=== PATIENT | male | born 1985 | race Caucasian/White ===

== ENCOUNTER 2016-09-05 03:57 | Emergency (ER) | payer SELFPAY ==
[~2016-09-05] VITALS: Ht 175.3 cm; Wt 75.0 kg
[~2016-09-05 03:57] MED LIST: OMEP40CA3 PO; ONDA-43 PO
[2016-09-05 04:04] VITALS: Ht 175.3 cm; Wt 75.0 kg
[2016-09-05] MEDS ORDERED: HYDROmorphONE 1 MG/ML SYG IV STA (04:09)
[2016-09-05] MEDS ORDERED: ONDANSETRON 4 MG INJ IV STA (04:09)
[2016-09-05] MEDS ORDERED: SOD CHLORIDE 0.9% 1,000 ML IV ONE (04:30)
--- NOTE | 2016-09-05 04:42 | RADRPT ---
PROCEDURE: CT Abdomen and pelvis without contrast. CLINICAL INDICATION: Abdominal pain. TECHNIQUE: CT scan of the abdomen and pelvis was performed on a multi-detector high-resolution CT scanner. Contiguous axial images were obtained from the lung bases to the ischial tuberosities wit hout intravenous contrast. Coronal and sagittal reformatted images were also obtained. Images were reviewed on the PACS workstation. One or more of the following dose reduction techniques were used: - Automated exposure control. - Adjustment of the mA and/or kV according to patient size. - Use of iterative reconstruction technique. Exam CTD/vol = 5.37 mGy. Total exam DLP = 314.29 mGy-cm. COMPARISON: 04/25/2013. FINDINGS: Evaluation of the lung bases demonstrates no pleural or parenchymal disease. Abdomen: The liver is normal in size. There is no focal mass or dilatation of the biliary tree. T he gallbladder is not distended. The spleen, pancreas and bilateral adrenal glands are within indira l limits. Bilateral kidneys are normal in size with no contour deforming mass identified. There is no radiopaque renal or ureteral calculus identified. There is no hydronephrosis or hydroureter. T here is no retroperitoneal adenopathy. The abdominal aorta is of normal caliber with scattered athe rosclerotic calcifications. There is no abnormal bowel wall thickening or distension. There is no bowel obstruction or free air . A normal appendix is identified. There is no diverticulosis or diverticulitis. There is no asci conner. Pelvis: The bladder is unremarkable. The prostate and seminal vesicles are within normal limits. There is no significant pelvic adenopathy or free fluid. Evaluation of the osseous structures demonstrates no suspicious lytic or blastic lesion. IMPRESSION: No acute abnormality identified within the abdomen and pelvis. Mild vascular calcifications reflective of atherosclerosis. .Scot Garcia MD, MD Date Time Electronically viewed and signed by .Scot Garcia MD, MD on 09/05/2016 04:41 .T/
[2016-09-05 04:43] LABS: ADD SCAN DIFF NO
[2016-09-05 04:45] LABS: BASOPHILS % 0.2 % (0.0-2.0); HEMATOCRIT 52.6 % (42.0-52.0); HEMOGLOBIN 18.1 g/dl (14.0-18.0); LYMPHOCYTES # 1.1 10^3/ul (0.8-2.9); LYMPHOCYTES % 5.9 % (15.0-51.0); MEAN CORPUSCULAR HEMOGLOBIN 31.7 pg (29.0-33.0); MEAN CORPUSCULAR HGB CONC 34.4 g/dl (32.0-37.0); MEAN CORPUSCULAR VOLUME 92.1 fl (82.0-101.0); MONOCYTE # 0.9 10^3/ul (0.3-0.9); MONOCYTES % 4.9 % (0.0-11.0); NEUTROPHILS % 88.2 % (39.0-77.0); PLATELET COUNT 496 10^3/UL (140-415); RED BLOOD COUNT 5.71 10^6/ul (4.70-6.10); RED CELL DISTRIBUTION WIDTH 11.8 % (11.5-14.5); WHITE BLOOD COUNT 18.1 10^3/ul (4.8-10.8)
[2016-09-05 05:00] LABS: ALBUMIN 5.6 g/dl (3.3-4.9); BILIRUBIN,INDIRECT 0.2 mg/dl (0-1.1); BILIRUBIN,TOTAL 0.2 mg/dl (0.2-1.3); CALCIUM 11.2 mg/dl (8.4-10.2); CREATININE 3.49 mg/dl (0.61-1.24); POTASSIUM 3.9 mmol/L (3.5-5.1)
[2016-09-05 05:07] LABS: ALBUMIN/GLOBULIN RATIO 1.07
[2016-09-05 05:16] LABS: TOTAL PROTEIN 10.8 g/dl (6.1-8.1)
--- NOTE | 2016-09-05 05:36 | ERA ---
ER Documentation Chief Complaint Date/Time DATE: 09/05/16 TIME: 05:34 Chief Complaint abdominal pain and vomitting x 2 daYS HPI This is a 30-year-old male with abdominal pain and vomiting for 2 days. Vomiting is nonbilious nonbloody. Abdominal pain is localized to the epigastric region no fevers no chills. Pain is mild to moderate intensity. No other current complaints. ROS All systems reviewed and are negative except as per history of present illness. Medications Home Meds Reported Medications Omeprazole* (Prilosec*) 40 Mg Capsule.dr, 40 MG PO DAILY 04/25/13 Ondansetron Hcl* (Zofran*) 4 Mg Tab, 4 MG PO Q4 Y 04/25/13 Allergies Allergies: Uncoded Allergies: IBUPROPHEN (Allergy, 04/25/13) PMhx/Soc Medical and Surgical Hx: pt denies Surgical Hx Hx Miscellaneous Medical Probl: Yes (gastric ulcer) Hx Alcohol Use: Yes Hx Substance Use: Yes (MARIJUANA) Hx Tobacco Use: Yes (DAILY) Smoking Status: Current every day smoker Physical Exam Vitals Vital Signs Date Time Temp Pulse Resp B/P Pulse Ox O2 Delivery O2 Flow Rate FiO2 09/05/16 04:04 97.8 139 18 131/97 97 Physical Exam Const: [] Head: Atraumatic Eyes: Normal Conjunctiva ENT: Normal External Ears, Nose and Mouth. Neck: Full range of motion..~ No meningismus. Resp: Clear to auscultation bilaterally Cardio: Regular rate and rhythm, no murmurs Abd: Soft, non tender, non distended. Normal bowel sounds Skin: No petechiae or rashes Back: No midline or flank tenderness Ext: No cyanosis, or edema Neur: Awake and alert Psych: Normal Mood and Affect Result Diagram: 09/05/16 0405 09/05/16 0405 Results 24 hrs Laboratory Tests Test 09/05/16 04:05 White Blood Count 18.110^3/ul Red Blood Count 5.7110^6/ul Hemoglobin 18.1g/dl Hematocrit 52.6% Mean Corpuscular Volume 92.1fl Mean Corpuscular Hemoglobin 31.7pg Mean Corpuscular Hemoglobin Concent 34.4g/dl Red Cell Distribution Width 11.8% Platelet Count 80498^3/UL Mean Platelet Volume 10.0fl Neutrophils % 88.2% Lymphocytes % 5.9% Monocytes % 4.9% Eosinophils % 0.0% Basophils % 0.2% Nucleated Red Blood Cells % 0.0/100WBC Neutrophils # 16.010^3/ul Lymphocytes # 1.110^3/ul Monocytes # 0.910^3/ul Eosinophils # 0.010^3/ul Basophils # 0.010^3/ul Nucleated Red Blood Cells # 0.010^3/ul Sodium Level 140mmol/L Potassium Level 3.9mmol/L Chloride Level 93mmol/L Carbon Dioxide Level 22mmol/L Anion Gap 29 Blood Urea Nitrogen 25mg/dl Creatinine 3.49mg/dl Glucose Level 360mg/dl Calcium Level 11.2mg/dl Total Bilirubin 0.2mg/dl Direct Bilirubin 0.00mg/dl Indirect Bilirubin 0.2mg/dl Aspartate Amino Transf (AST/SGOT) 32IU/L Alanine Aminotransferase (ALT/SGPT) 30IU/L Alkaline Phosphatase 131IU/L Total Protein 10.8g/dl Albumin 5.6g/dl Globulin 5.20g/dl Albumin/Globulin Ratio 1.07 Lipase 113U/L Current Medications Medications (Trade) Dose Ordered Sig/Jessica Route PRN Reason Start Time Stop Time Status Last Admin Dose Admin Hydromorphone HCl (Dilaudid) 1 mg ONCE STAT IV 09/05/16 04:09 09/05/16 04:14 DC 09/05/16 04:18 Ondansetron HCl 4 mg 4 mg ONCE STAT IV 09/05/16 04:09 09/05/16 04:14 DC 09/05/16 04:18 Sodium Chloride (NS) 1,000 ml @ 1,000 mls/hr Q1H ONCE IV 09/05/16 04:30 09/05/16 05:29 DC 09/05/16 05:03 Procedures/MDM EKG: Rate/Rhythm: Sinus tachycardia 134 QRS, ST, T-waves: [No changes consistent w/ acute ischemia] Impression: [Sinus tach Medical assessment: 30-year-old male with abdominal pain likely epigastric in origin with gastritic symptoms. Patient is a history of ulcer in the past. No evidence of surgical abdomen. CT is negative otherwise. Patient will be discharged home with omeprazole, Lesage, Zofran, Carafate. Follow-up in 8 hours for serial abdominal exams. Departure Diagnosis: Primary Impression: Abdominal pain Qualified Code: R10.13 - Epigastric pain Condition: Stable JAYDON TRAN Sep 05, 2016 05:36
[2016-09-05] MEDS ORDERED: ONDA4TAB14 PO (05:37)
[2016-09-05] MEDS ORDERED: RANI150T9 PO (05:37)
[2016-09-05] MEDS ORDERED: SUCR1TAB56 PO (05:37)
[2016-09-05] MEDS ORDERED: HYDR-902 PO (05:37)
[2016-09-05 06:14] VITALS: BP 130/80; PULSE 66; RESP 16; TEMP 97.8
== END 2016-09-05 06:14 | disposition home or self-care (01) ==
LOC: E/R 03:57
DX: R10.13 Epigastric pain (principal); R11.10 Vomiting, unspecified; F17.210 Nicotine dependence, cigarettes, uncomplicated
CPT/HCPCS: 36415; 74176; 80053; 83690; 85025; 96374; 96375; 99285; J1170; J2405; J7030

== ENCOUNTER 2016-09-10 15:42 | Inpatient (IN) | payer MEDICAID, OTHER ==
[~2016-09-10] VITALS: Ht 175.3 cm; Wt 78.5 kg
[~2016-09-10 15:42] MED LIST changes: +HYDR-902 PO; +ONDA4TAB14 PO; +RANI150T9 PO; +SUCR1TAB56 PO
[2016-09-10] MEDS ORDERED: METOCLOPRAMIDE 10 MG INJ IV STA (16:13)
[2016-09-10] MEDS ORDERED: SOD CHLORIDE 0.9% 1,000 ML IV STA (16:13)
[2016-09-10] MEDS ORDERED: FAMOTIDINE 20 MG INJ IV STA (16:13)
[2016-09-10] MEDS ORDERED: morphine 4 MG/ML VIAL IV STA (16:13)
--- NOTE | 2016-09-10 16:23 | ERA ---
ER Documentation Chief Complaint Date/Time DATE: 09/10/16 TIME: 16:18 Chief Complaint AP WITH VOMITING, HERE LAST MONDAY C/O SAME HPI 30-year-old male with no significant past medical history presenting to the ER with abdominal pain for about 9 days. He states he was here on September 05 for the same symptoms and sent home with antireflux medication and sucralfate. His pain has not improved at all. He is unable to take the [place] he was also prescribed as he throws it up. He states his pain is all over his abdomen, stabbing, constant, worse with any oral intake, nothing seems to make it better. His pain is a 10 out of 10. He has associated nonbloody and nonbilious vomiting. He has had constipation for the past 2 days but is passing gas. He denies any associated fevers or chills. He denies any associated chest pain, shortness of breath, headaches, dizziness, neck pain, stiffness. He denies any dysuria or hematuria. He is urination has not decreased. ROS All systems reviewed and are negative except as per history of present illness. Medications Home Meds Active Scripts Ondansetron (Ondansetron Odt) 4 Mg Tab.rapdis, 4 MG PO Q6H Y for NAUSEA AND/OR VOMITING, #10 TAB Prov:JAYDON TRAN 09/05/16 Ranitidine Hcl* (Zantac*) 150 Mg Tablet, 150 MG PO BID Y for EPIGASTRIC PAIN, # 30 TAB Prov:JAYDON TRAN 09/05/16 Sucralfate* (Carafate*) 1 Gm Tab, 1 GM PO QID, #60 TAB Prov:JAYDON TRAN 09/05/16 Discontinued Reported Medications Omeprazole* (Prilosec*) 40 Mg Capsule.dr, 40 MG PO DAILY 04/25/13 Ondansetron Hcl* (Zofran*) 4 Mg Tab, 4 MG PO Q4 Y 04/25/13 Discontinued Scripts Hydrocodone/Acetaminophen ([place] 10-325 Tablet) 1 Each Tablet, 1 TAB PO Q6H Y for PAIN, #20 TAB Prov:JAYDON TRAN 09/05/16 Allergies Allergies: Uncoded Allergies: IBUPROPHEN (Allergy, Unknown, 09/10/16) PMhx/Soc Medical and Surgical Hx: pt denies Surgical Hx Hx Miscellaneous Medical Probl: Yes (gastritis) Hx Alcohol Use: No Hx Substance Use: Yes (MARIJUANA) Hx Tobacco Use: Yes (quit a few days ago) Smoking Status: Former smoker FmHx Family History: No diabetes Physical Exam Vitals Vital Signs Date Time Temp Pulse Resp B/P Pulse Ox O2 Delivery O2 Flow Rate FiO2 09/10/16 15:46 97.9 98 20 113/66 99 Physical Exam Const: Nontoxic, thin male, mild distress secondary to pain Head: Atraumatic Eyes: Normal Conjunctiva, PERRLA, EOMI, no nystagmus ENT: Dry mucous membranes, oropharynx clear Neck: Full range of motion..~ No meningismus. Resp: Clear to auscultation bilaterally Cardio: Regular rate and rhythm, no murmurs Abd: Soft, concave, minimal subjective tenderness diffusely, no guarding or rebound, non distended. Negative Lowe sign. No McBurney's point tenderness. Hyperactive bowel sounds Skin: No petechiae or rashes Back: No midline or flank tenderness Ext: Multiple tattoos noted, no cyanosis, or edema Neur: Awake and alert and oriented 3, no facial asymmetry, moving all extremities Psych: Normal Mood and Affect Result Diagram: 09/10/16 1627 09/10/16 1627 Results 24 hrs Laboratory Tests Test 09/10/16 16:27 09/10/16 16:36 White Blood Count 11.910^3/ul Red Blood Count 4.9310^6/ul Hemoglobin 15.9g/dl Hematocrit 43.2% Mean Corpuscular Volume 87.6fl Mean Corpuscular Hemoglobin 32.3pg Mean Corpuscular Hemoglobin Concent 36.8g/dl Red Cell Distribution Width 10.9% Platelet Count 11024^3/UL Mean Platelet Volume 10.0fl Neutrophils % 63.3% Lymphocytes % 22.1% Monocytes % 12.8% Eosinophils % 1.0% Basophils % 0.4% Nucleated Red Blood Cells % 0.0/100WBC Neutrophils # 7.510^3/ul Lymphocytes # 2.610^3/ul Monocytes # 1.510^3/ul Eosinophils # 0.110^3/ul Basophils # 0.110^3/ul Nucleated Red Blood Cells # 0.010^3/ul Sodium Level 126mmol/L Potassium Level 3.4mmol/L Chloride Level 77mmol/L Carbon Dioxide Level 31mmol/L Anion Gap 21 Blood Urea Nitrogen 38mg/dl Creatinine 1.23mg/dl Glucose Level 120mg/dl Calcium Level 9.5mg/dl Total Bilirubin 0.8mg/dl Direct Bilirubin 0.00mg/dl Indirect Bilirubin 0.8mg/dl Aspartate Amino Transf (AST/SGOT) 32IU/L Alanine Aminotransferase (ALT/SGPT) 33IU/L Alkaline Phosphatase 72IU/L Total Protein 8.8g/dl Albumin 5.2g/dl Globulin 3.60g/dl Albumin/Globulin Ratio 1.44 Lipase 216U/L Bedside Glucose 108mg/dL Current Medications Medications (Trade) Dose Ordered Sig/Jessica Route PRN Reason Start Time Stop Time Status Last Admin Dose Admin Sodium Chloride (NS) 1,000 ml @ 1,000 mls/hr Q1H STAT IV 09/10/16 16:13 09/10/16 21:04 DC 09/10/16 16:31 Morphine Sulfate (morphine) 4 mg ONCE STAT IV 09/10/16 16:13 09/10/16 16:14 DC 09/10/16 16:26 Metoclopramide HCl (Reglan) 10 mg ONCE STAT IV 09/10/16 16:13 09/10/16 16:14 DC 09/10/16 16:26 Famotidine 20 mg 20 mg ONCE STAT IV 09/10/16 16:13 09/10/16 16:14 DC 09/10/16 16:26 Potassium Chloride/Dextrose/ Sod Cl (D5-1/2ns + KCl 40 Meq) 1,000 ml @ 80 mls/hr [id number] IV 09/10/16 17:33 09/11/16 06:02 Procedures/MDM EMERGENT LABS AND DIAGNOSTIC STUDIES: Lab Results above were reviewed and interpreted by me. CBC notable for mild leukocytosis BMP notable for hyponatremia, hypochloremia, BUN elevation, hypokalemia Urinalysis normal 12-lead EKG was interpreted by Reg Nguyen MD: Normal Sinus Rhythm with ventricular rate of 88 beats per minute Right axis deviation No acute ST or T wave changes suggestive of acute ischemia or STEMI. Radiology Results as interpreted by Radiology below were reviewed by Marcia Nguyen MD: Chest x-ray shows no acute abnormalities CT abdomen and pelvis shows no acute abnormalities Initial Nursing notes reviewed. Previous Medical Records requested via the Electronic Health Record. EMERGENCY DEPARTMENT COURSE / MEDICAL DECISION MAKING: Patient is presenting with diffuse abdominal pain with intractable nausea and vomiting for about 9 days. He is afebrile and otherwise hemodynamically stable. I do not suspect meningitis or encephalitis. I have a low suspicion for acute surgical abdomen, however his CT abdomen and pelvis were ordered to rule out any other pathology that may be causing his symptoms. The patient does use marijuana, so this may be related to that. Labs did show evidence of hypo-natremia, hypochloremia. He is clinically hypovolemic. IV fluids were given. Patient will be admitted for further hydration and control of his symptoms. Maintenance IV fluids were also started. He was given medications for his nausea, with significant improvement. I spoke with Dr. Kapoor, who will admit the patient to Med/Surg. Departure Diagnosis: Primary Impression: Hyponatremia Additional Impressions: Abdominal pain Qualified Code: R10.84 - Generalized abdominal pain Dehydration Intractable nausea and vomiting Qualified Code: G43.A1 - Intractable cyclical vomiting with nausea Acute kidney injury Condition: BEN Lazaro MD Sep 10, 2016 16:23
[2016-09-10 16:38] LABS: ADD SCAN DIFF NO
[2016-09-10 16:40] LABS: ABNORMAL IP MESSAGE 1; BASOPHIL # 0.1 10^3/ul (0.0-0.1); BASOPHILS % 0.4 % (0.0-2.0); EOSINOPHILS # 0.1 10^3/ul (0.0-0.5); HEMATOCRIT 43.2 % (42.0-52.0); HEMOGLOBIN 15.9 g/dl (14.0-18.0); LYMPHOCYTES # 2.6 10^3/ul (0.8-2.9); LYMPHOCYTES % 22.1 % (15.0-51.0); MEAN CORPUSCULAR HEMOGLOBIN 32.3 pg (29.0-33.0); MEAN CORPUSCULAR HGB CONC 36.8 g/dl (32.0-37.0); MEAN CORPUSCULAR VOLUME 87.6 fl (82.0-101.0); MONOCYTE # 1.5 10^3/ul (0.3-0.9); MONOCYTES % 12.8 % (0.0-11.0); NEUTROPHIL # 7.5 10^3/ul (1.6-7.5); NEUTROPHILS % 63.3 % (39.0-77.0); PLATELET COUNT 356 10^3/UL (140-415); RED BLOOD COUNT 4.93 10^6/ul (4.70-6.10); RED CELL DISTRIBUTION WIDTH 10.9 % (11.5-14.5); WHITE BLOOD COUNT 11.9 10^3/ul (4.8-10.8)
[2016-09-10 16:52] LABS: ALBUMIN 5.2 g/dl (3.3-4.9); POTASSIUM 3.4 mmol/L (3.5-5.1)
[2016-09-10 16:54] LABS: CREATININE 1.23 mg/dl (0.61-1.24)
[2016-09-10 16:55] LABS: ALBUMIN/GLOBULIN RATIO 1.44; BILIRUBIN,INDIRECT 0.8 mg/dl (0-1.1); BILIRUBIN,TOTAL 0.8 mg/dl (0.2-1.3); CALCIUM 9.5 mg/dl (8.4-10.2); TOTAL PROTEIN 8.8 g/dl (6.1-8.1)
--- NOTE | 2016-09-10 16:55 | RADRPT ---
PROCEDURE: XR Chest. CLINICAL INDICATION: chest pain, abdominal pain TECHNIQUE: Single frontal view of the chest was obtained COMPARISON: None FINDINGS: The heart and mediastinum are within normal limits. The lungs are clear. There is no pleural effusion or pneumothorax. RPTAT: AA IMPRESSION: No acute disease. .Gibson Hill MD, MD Date Time Electronically viewed and signed by .Gibson Hill MD, on 09/10/2016 16:55 .S/
--- NOTE | 2016-09-10 17:04 | RADRPT ---
PROCEDURE: CT Abdomen and Pelvis without contrast. CLINICAL INDICATION: Abdominal pain TECHNIQUE: CT scan of the abdomen and pelvis without contrast was performed. The patient was scann ed without intravenous contrast. Coronal and sagittal reformatted images were obtained from the axi al source images. Use of iterative reconstruction technique was employed. Images were reviewed on a high-resolution PACS workstation. images. The calculated radiation dose measures 360.08 mGy centimet ers. The CTDI measures 6.26 mGy. One or more of the following dose reduction techniques were used: - Automated exposure control. - Adjustment of the mA and/or kV according to patient size . - Use of iterative reconstruction technique. Images were reviewed on a high-resolution PACS workstation COMPARISON: 09/05/2016 FINDINGS: CT abdomen: The lung bases are clear. The heart size is normal, without pericardial thickening or effusion. Th e liver is normal in size and density without focal mass or intrahepatic biliary dilatation. The sp rakel is normal in size and homogeneous in density. The stomach is partially collapsed, but is gross ly unremarkable. The pancreas as visualized is normal. The gallbladder demonstrates dense material within it, suggesting sludge. The biliary tree are unremarkable and there is no evidence for biliar y dilatation. The adrenal glands are symmetric and normal. The kidneys are symmetrically unremarka ble as well. No renal calculus or obstructive uropathy or mass lesion is seen. The aorta is of normal caliber. Aortic vascular calcifications are present. There is no retroperit nichols lymphadenopathy. The desire hepatis region is clear. The bowel and mesentery, as visualized, are equally unremarkable. CT pelvis: The small bowel loops situated within the pelvis are unremarkable. The pelvic organs are normal. T he pelvic sidewalls and inguinal regions are clear. The sigmoid colon and rectum are not thickened or dilated. Normal unenhanced appearance of the appendix.. No mass, lymphadenopathy, or free fluid is seen. No acute inflammation is seen. The surrounding osseous structures are intact. No osteolytic or osteoblastic lesion is detected. IMPRESSION: 1. No acute inflammatory process within the abdomen or pelvis identified on this noncontrast examin ation. 2. Normal, unenhanced appearance of the appendix. 3. Atherosclerotic vascular calcifications, somewhat unusual based on the patient's age. 4. Mildly dependent dense material within the gallbladder, suggesting biliary sludge, if concern fo r this region exists, an ultrasound may be obtained. RPTAT: EE .Navi Mack MD, MD Date Time Electronically viewed and signed by .Navi Mack MD, MD on 09/10/2016 17:04 .d/
[2016-09-10] MEDS ORDERED: D5W-0.45 NACL + KCL 40 MEQ 1,000 ML IV SCH (17:33)
[2016-09-10 17:55] LABS: ADD UMIC NO; URINE BILIRUBIN (Dip) NEGATIVE (NEGATIVE); URINE BLOOD (Dip) NEGATIVE (NEGATIVE); URINE COLOR LT. YELLOW (YELLOW); URINE GLUCOSE (Dip) NEGATIVE (NEGATIVE); URINE KETONES (Dip) NEGATIVE (NEGATIVE); URINE LEUKOCYTE ESTERASE (Dip) NEGATIVE (NEGATIVE); URINE NITRITE (Dip) NEGATIVE (NEGATIVE); URINE TOTAL PROTEIN (Dip) NEGATIVE (NEGATIVE); URINE UROBILINOGEN (Dip) 0.2 E.U./dL (0.1-1.0)
[2016-09-10] MEDS ORDERED: ONDANSETRON 4 MG INJ IV PRN ×2 (18:00→18:30)
[2016-09-10] MEDS ORDERED: ACETAMINOPHEN 325 MG TAB PO PRN ×2 (18:00→18:30)
[2016-09-10] MEDS: NS + KCL 20 MEQ 1,000 ML IV SCH (18:14)
[2016-09-10 18:15] VITALS: PULSE 100; TEMP 97.9
[2016-09-10] MEDS ORDERED: ONDANSETRON 4 MG INJ ONE (18:22)
[2016-09-10] MEDS ORDERED: HYDROCODONE/APAP (5/325) TAB PO PRN (18:30)
[2016-09-10] MEDS ORDERED: MAGNESIUM HYDROXIDE 30ML CUP PO PRN (18:30)
[2016-09-10] MEDS ORDERED: NACL 0.9% 3 ML SYG IV SCH (18:30)
[2016-09-10] MEDS ORDERED: BISACODYL (EC) 5 MG TAB PO PRN (18:30)
[2016-09-10] MEDS: METOCLOPRAMIDE 10 MG INJ IV SCH (18:34)
[2016-09-10 18:58] VITALS: BP 128/87; RESP 22
--- NOTE | 2016-09-10 19:09 | HP ---
DATE OF ADMISSION: 09/10/2016 TIME OF EVALUATION: 1800 hours. REASON FOR ADMISSION: Abdominal pain. Recurrent nausea and vomiting. CONSULTATIONS: Dr. Yony Dexter, Gastroenterology. HISTORY OF PRESENT ILLNESS: This is a 30-year-old male with no significant past medical history who came to the emergency room with chief complaint of abdominal pain that has been going on for the past 9 days. The patient was actually seen in the emergency room at [facility] on 2016 with similar complaints. The patient was discharged home on medications including antiemetics and Carafate. Nevertheless, the patient has been not feeling well and he had multiple episodes of nonbilious, nonbloody vomiting and significant abdominal pain, rated at 10/10. The patient said he smokes marijuana. However, he verbalized that he has not been smoking marijuana for the past 1 week or so. The patient denied any diarrhea, although he had diarrhea on his previous visit to the emergency room at [facility] on 09/05/2016. There was no reported hematemesis, although patient's family reported a prior history of hematemesis in the remote past. The patient denies any alcohol drinking. In the emergency room, the patient underwent a CT scan of the abdomen and pelvis that was negative for any acute intraabdominal or intrapelvic findings. The patient was noticed to have significant hyponatremia and some hypokalemia and hypochloremia. The patient was also noticed to have elevated anion gap. The patient was treated with IV morphine and IV Reglan and with IV fluids in the emergency room. PAST MEDICAL HISTORY: Denies. PAST SURGICAL HISTORY: Denies. HOME MEDICATIONS: 1. Zofran 4 mg p.o. q.6h. p.r.n. nausea, vomiting. 2. Zantac 150 mg p.o. b.i.d. 3. Carafate 1 gram p.o. q.i.d. ALLERGIES: IBUPROFEN. SOCIAL HISTORY: The patient lives at home. Current marijuana user. Former smoker. Denies any use of alcohol. REVIEW OF SYSTEMS: A 12-point review of systems. Remainder of review of systems was negative other than what is mentioned in history of present illness. PHYSICAL EXAMINATION: VITAL SIGNS: Temperature 97.9, pulse rate 100, respiratory rate 20, blood pressure 113/84, oxygen saturation 99% on room air. GENERAL: This is a well-built, well-nourished male lying in bed in mild mitral to moderate distress from underlying pain. HEENT: Head normocephalic and atraumatic. Eyes: Anicteric sclerae. Conjunctivae clear. ENT: Nasal septum is midline. Oral mucosa is dry. NECK: Supple. No JVD noticed. RESPIRATORY: Bilaterally clear to auscultation. No adventitious breath sounds heard. No use of accessory muscles of respiration. CARDIAC: Regular rate and rhythm. No murmurs heard. GASTROINTESTINAL: Abdomen scaphoid. Diffuse tenderness. Soft. Bowel sounds hypoactive in all 4 quadrants. GENITOURINARY: Deferred. EXTREMITIES: No cyanosis, no clubbing, no edema. Peripheral pulses palpable. NEUROLOGIC: The patient is awake, alert and oriented. No focal neurologic deficits. SKIN: Multiple tattoos. LABORATORY AND DIAGNOSTIC DATA: WBC 11.9, hemoglobin 15.9, hematocrit 43.2, platelet count 356. Sodium 126, potassium 3.4, chloride 77, carbon dioxide 31, anion gap 21, BUN 30, creatinine 1.23, glucose 120, calcium 9.5, AST 32, ALT 33 , alkaline phosphatase 72, total protein 8.8, albumin 5.2. Urinalysis: Urine nitrite negative, leukocyte esterase negative, urine glucose negative, urine total protein negative. Chest x-ray: No acute cardiopulmonary findings. CT scan of the abdomen and pelvis: No acute inflammatory process seen within the abdomen and pelvis. Normal unenhanced appearance of the appendix. Atherosclerotic vascular calcifications, somewhat unusual based on the patient' s age. Mildly dependent density within the gallbladder, suggesting biliary sludge. IMPRESSION: A 30-year-old male patient with no significant past medical history who came to the emergency room with chief complaint of abdominal pain with multiple episodes of nonbilious, nonbloody vomiting who had failed outpatient therapy will be admitted here for further treatment and evaluation. ASSESSMENT AND PLAN: 1. Acute abdominal pain. Etiology unclear. The patient with associated nausea and vomiting. CT scan of the abdomen and pelvis negative for any acute intraabdominal findings. The patient's etiology could be secondary to cannabinoid hyperemesis syndrome. Nevertheless, gastroenterology consult will be obtained for further evaluation. The patient will be started on proton pump inhibitors and mucosal barrier protectants. 2. Hyponatremia secondary to #2. The patient will be adequately hydrated. The patient's sodium will be corrected gradually. 3. Anion gap acidosis, most probably secondary to #1. The patient will be adequately hydrated using IV fluids. 4. Hypokalemia, most probably secondary to #1. The patient's potassium will be repleted. Plan. The patient will be admitted to inpatient medical/surgical floor. The patient will be started on a clear liquid diet, and the patient's diet will be advanced as tolerated. The patient will be started on DVT prophylaxis and gastrointestinal prophylaxis. The patient will remain a FULL CODE. Activities will be as tolerated. The rest of the patient's management will be based on the clinical course, the results of diagnostic studies, and inputs from consultants. Based on the patient's clinical presentation, he most probably requires at least 2 midnights' stay for further management and evaluation of his clinical presentation. The case and management of this patient was fully discussed with Dr. Belle. PRERNA BELLE MD, AM/ROSS Conf#: [id number] DID#: [id number] MTDD
[2016-09-10] MEDS: morphine 2 MG INJ IV PRN ×2 (19:12→23:25)
[2016-09-10 20:18] VITALS: Ht 175.3 cm; Wt 78.5 kg
[2016-09-10] MEDS: SUCRALFATE (100 MG/ML) 10ML CUP PO SCH (20:54)
[2016-09-10] MEDS: AL HYDROX/MG HYDROX/SIMETH 30 ML CUP PO PRN (23:56)
[2016-09-11] MEDS: morphine 2 MG INJ IV PRN (03:35)
[2016-09-11] MEDS: NS + KCL 20 MEQ 1,000 ML IV SCH (04:06)
[2016-09-11] MEDS: AL HYDROX/MG HYDROX/SIMETH 30 ML CUP PO PRN (05:35)
[2016-09-11] MEDS: METOCLOPRAMIDE 10 MG INJ IV SCH (05:35)
[2016-09-11] MEDS ORDERED: PANTOPRAZOLE 40 MG INJ IV SCH (06:00)
[2016-09-11 06:40] LABS: ADD SCAN DIFF NO
[2016-09-11 06:48] LABS: CHOL/HDL RATIO 5.6 RATIO; MAGNESIUM 2.5 mg/dl (1.7-2.5); PHOSPHORUS 3.2 mg/dl (2.5-4.9)
[2016-09-11 07:17] LABS: THYROID STIMULATING HORMONE 3.19 MIU/L (0.465-4.680)
[2016-09-11 07:23] VITALS: BP 108/69; RESP 18
[2016-09-11 08:11] LABS: ALBUMIN 3.9 g/dl (3.3-4.9); ALBUMIN/GLOBULIN RATIO 1.25; BILIRUBIN,INDIRECT 0.4 mg/dl (0-1.1); BILIRUBIN,TOTAL 0.4 mg/dl (0.2-1.3); CALCIUM 8.7 mg/dl (8.4-10.2); CREATININE 0.85 mg/dl (0.61-1.24); POTASSIUM 3.1 mmol/L (3.5-5.1)
[2016-09-11] MEDS: SUCRALFATE (100 MG/ML) 10ML CUP PO SCH (08:16)
[2016-09-11 09:39] LABS: BASOPHILS % 0.6 % (0.0-2.0); EOSINOPHILS # 0.2 10^3/ul (0.0-0.5); EOSINOPHILS % 3.4 % (0.0-7.0); HEMATOCRIT 37.2 % (42.0-52.0); HEMOGLOBIN 13.1 g/dl (14.0-18.0); LYMPHOCYTES # 2.6 10^3/ul (0.8-2.9); LYMPHOCYTES % 36.9 % (15.0-51.0); MEAN CORPUSCULAR HEMOGLOBIN 32.3 pg (29.0-33.0); MEAN CORPUSCULAR HGB CONC 35.2 g/dl (32.0-37.0); MEAN CORPUSCULAR VOLUME 91.9 fl (82.0-101.0); MEAN PLATELET VOLUME 10.4 fl (7.4-10.4); MONOCYTE # 1.1 10^3/ul (0.3-0.9); PLATELET COUNT 255 10^3/UL (140-415); RED BLOOD COUNT 4.05 10^6/ul (4.70-6.10); RED CELL DISTRIBUTION WIDTH 11.3 % (11.5-14.5)
[2016-09-11] MEDS ORDERED: POTASSIUM CHLORIDE (SR) 20 MEQ TAB PO STA (09:50)
[2016-09-11] MEDS ORDERED: POTASSIUM CHLORIDE 250 ML IVPB SCH (11:00)
--- NOTE | 2016-09-11 12:53 | DS ---
DATE OF ADMISSION: 09/10/2016 DATE OF DISCHARGE: 09/11/2016 (Left AMA.) ADMITTING DIAGNOSES: 1. Acute abdominal pain. 2. Possible underlying cannabinoid hyperemesis syndrome. 3. Hyponatremia. 4. Marijuana abuse. HOSPITAL COURSE: This is a 30-year-old male with no significant past medical history, who came to the emergency room with chief complaint of abdominal pain that has been going on for the past 9 days. The patient was actually seen in the emergency room at [facility] on 09/05/2016 with similar complaints. The patient was discharged home on medications including antiemetics and Carafate. Nevertheless, the patient was not feeling well and the patient had multiple episodes of nonbilious, nonbloody vomiting, and significant abdominal pain rated as 10/10. The patient underwent a CT scan of the abdomen and pelvis in the emergency room that was negative for any acute intraabdominal findings. Provided the patient's history of present illness, a clinical decision was made to admit the patient to inpatient setting to have him further evaluated. The patient was admitted to inpatient medical/surgical floor. Gastroenterology consult was called. The patient was started on proton pump inhibitors, prokinetics, and mucosal barrier protectants with improvement in the patient's symptoms. The patient was maintained on IV fluids for his underlying hyponatremia. The patient improved symptomatically. The patient was awaiting for a gastroenterology consult. However, the patient really did not want to wait. The patient was instructed about the importance of getting gastroenterology consult since this is his second admission in the last 10 days. Nevertheless, the patient wanted to leave the hospital against medical advice. The patient was instructed on the consequences of leaving against medical advice including the possibility of . No discharge planning was done and no discharge medications were done since the patient left the hospital against medical advice. PERTINENT LABORATORY AND DIAGNOSTIC DATA: 1. Latest CBC: WBC 7.0, hemoglobin 13.1, hematocrit 37.2, platelet count 255. 2. Latest BMP: Sodium 126, potassium 3.1, chloride 88, carbon dioxide 31, anion gap 10, BUN 27, creatinine 0.85, glucose 96%. 3. Hemoglobin A1c 5.3. 4. Fasting lipid panel: Triglycerides 90, total cholesterol 164, LDL 117, HDL 29. 5. CT scan of the abdomen and pelvis on admission. No acute inflammatory process within the abdomen and pelvis. Atherosclerotic vascular calcifications. Mildly deeper and dense material in the gallbladder suggesting biliary sludge. The case and management of this patient was fully discussed with Dr. Belle. PRERNA BELLE MD, AM/ROSS Conf#: [id number] DID#: [id number]
[2016-09-11 15:22] LABS: BARBITURATES Negative (NEGATIVE)
[2016-09-11 15:23] LABS: BENZODIAZEPINES Negative (NEGATIVE); COCAINE Negative (NEGATIVE)
[2016-09-11 15:26] LABS: CANNABINOIDS Positive (NEGATIVE); OPIATES Positive (NEGATIVE)
== END 2016-09-11 10:45 | disposition left against medical advice (07) | DRG 392 ==
LOC: E/R 15:42 → MS2 17:34
PROVIDERS: ADMIT Family Medicine; ATTEND Family Medicine
DX: R11.2 Nausea with vomiting, unspecified (principal); E87.1 Hypo-osmolality and hyponatremia; E87.6 Hypokalemia; F12.90 Cannabis use, unspecified, uncomplicated
CPT/HCPCS: 36415; 71010; 74176; 80053; 80061; 80307; 81003; 82652; 82962; 83036; 83690; 83735; 84100; 84439; 84443; 85025; 93005; 96374; 96375; 96376; C9113; J2270; J2405; J2765; J3480; J7030